=== PATIENT | female | born 1990 | race Caucasian/White ===

== ENCOUNTER 2016-06-02 18:39 | Emergency (ER) | payer MEDICAID ==
[~2016-06-02] VITALS: Ht 157.5 cm; Wt 88.5 kg
[2016-06-02 18:39] VITALS: BP 130/79; PULSE 78; RESP 19; TEMP 98.2; O2SAT 100
[~2016-06-02 18:39] MED LIST: SAPHRIS PO; VIS25 PO
--- NOTE | 2016-06-02 18:39 | NUR ---
BROUGHT BACK TO BED #7 AND TRIAGED. REPORT GIVEN TO KENDRICK
--- NOTE | 2016-06-02 19:00 | NUR ---
REPORT GIVEN TO JHONATAN. WILL ASSUME CARE
--- NOTE | 2016-06-02 19:10 | NUR ---
Pt presents to ED c/o increased SOB and wheeze for the past few days, stated she smoked and is a 13 Weeks old . SKin intact, warm, no accessory muscle use noted. A&Ox4, denies chestpain, denies N/V/D. WIll continue to monitor
[2016-06-02 19:11] LABS: BASOPHILS % (AUTO) 0.3 % (0.0-2.0); EOSINOPHILS # (AUTO) 0.1 K/uL (0.0-0.4); EOSINOPHILS % (AUTO) 1.7 % (0.0-4.0); HEMATOCRIT 34.4 % (36-48); LYMPHOCYTES # (AUTO) 2.3 K/uL (1.0-5.5); LYMPHOCYTES % (AUTO) 28.9 % (20.5-51.5); MEAN CORPUSCULAR HEMOGLOBIN 30 pg (27-31); MEAN CORPUSCULAR HGB CONC 35 % (32-36); MEAN CORPUSCULAR VOLUME 86 fL (79.0-98.0); MONOCYTES # (AUTO) 0.6 K/uL (0.0-1.0); MONOCYTES % (AUTO) 7.7 % (1.7-9.3); NEUTROPHILS # (AUTO) 4.9 K/uL (1.8-7.7); NEUTROPHILS % (AUTO) 61.4 % (40.0-70.0); PLATELET COUNT (AUTO) 207 K/uL (130-430); RED BLOOD CELL COUNT(AUTO) 4.01 MIL/uL (4.2-6.2); RED CELL DISTRIBUTION WIDTH 11.6 % (9.0-15.0); WHITE BLOOD COUNT (AUTO) 7.9 K/uL (4.8-10.8)
[2016-06-02 19:14] LABS: CALCIUM 8.7 mg/dL (8.4-11.0); CREATININE 0.8 mg/dL (0.55-1.30); POTASSIUM 3.7 mmol/L (3.5-5.1)
[2016-06-02 19:17] LABS: INR 0.9 (0.8-1.2); PROTHROMBIN TIME 9.6 SECS (9.5-12.5)
[2016-06-02 19:19] LABS: ALBUMIN 3.2 g/dL (3.4-4.8); TOTAL BILIRUBIN 0.2 mg/dL (0.0-1.0)
[2016-06-02 19:20] LABS: BILIRUBIN,URINE NEGATIVE (NEGATIVE); CLARITY/URINE HAZY (CLEAR); COLOR,URINE YELLOW (YELLOW); GLUCOSE,URINE NEGATIVE (NEGATIVE); KETONES,URINE TRACE (NEGATIVE); LEUKOCYTE ESTERASE ,URINE 1+ (NEGATIVE); NITRITE, URINE NEGATIVE (NEGATIVE); PROTEIN URINE NEGATIVE (NEGATIVE); UROBILINOGEN,URINE 0.2 (0.2-1.0)
[2016-06-02 19:51] LABS: BLOOD, URINE TRACE (NEGATIVE)
--- NOTE | 2016-06-02 20:21 | NUR ---
Yoandy peralta in [facility] - 06/02/16 at 2114 by TIERNEY Pt off unit to [place].
[2016-06-02 20:25] LABS: BACTERIA,URINE MODERATE /HPF (None Seen); MUCUS,URINE 2+ /LPF (None Seen)
--- NOTE | 2016-06-02 21:14 | NUR ---
Dr. Bojorquez at bedside to examine pt and discuss plan of care.
--- NOTE | 2016-06-02 22:10 | NUR ---
Pt needs assessed and care attended . No distress noted
[2016-06-02] MEDS ORDERED: IBUPROFEN 600 MG TABLET PO ONE (22:45)
[2016-06-02] MEDS ORDERED: SULFAMETHOXAZOLE/TRIMETHOPR DS 1 TABLET PO ONE (22:45)
--- NOTE | 2016-06-02 22:48 | NUR ---
Note undone in EDM - 06/02/16 at 2249 by [email or web address] dis Patient given written and verbal discharge instructions and verbalizes understanding. ER MD Bojorquez discussed with patient the results and treatment provided. Patient in stable condition. ID arm band removed. IV catheter removed intact and dressing applied, no active bleeding. Rx of bactrim given. Patient educated on pain management and to follow up with PMD. Pain Scale 0/10 Opportunity for questions provided and answered.
[2016-06-02 22:55] VITALS: BP 124/76; PULSE 77; RESP 19; TEMP 98.2; O2SAT 98
== END 2016-06-02 22:49 | disposition home or self-care (01) ==
LOC: SED 18:39
DX: O23.42 Unspecified infection of urinary tract in pregnancy, second trimester (principal); O26.892 Other specified pregnancy related conditions, second trimester; S29.011A Strain of muscle and tendon of front wall of thorax, initial encounter; I10 Essential (primary) hypertension; J45.909 Unspecified asthma, uncomplicated; Z88.0 Allergy status to penicillin; Z91.018 Allergy to other foods; Z88.8 Allergy status to other drugs, medicaments and biological substances; Z3A.14 14 weeks gestation of pregnancy; X58.XXXA Exposure to other specified factors, initial encounter; Y93.89 Activity, other specified; Y99.8 Other external cause status; Y92.89 Other specified places as the place of occurrence of the external cause; O99.512 Diseases of the respiratory system complicating pregnancy, second trimester; O16.2 Unspecified maternal hypertension, second trimester
CPT/HCPCS: 36415; 71010; 80053; 81000-TC; 81025; 83690-TC; 85025; 85610-TC; 85730-TC; 87086; 99285

== ENCOUNTER 2017-02-15 15:28 | Emergency (ER) | payer MEDICAID ==
[~2017-02-15] VITALS: Ht 157.5 cm; Wt 83.9 kg
[2017-02-15 16:08] VITALS: BP_SYST 116; BP_SYST 136
--- NOTE | 2017-02-15 16:12 | NUR ---
Patient triaged and placed in waiting room. VSS and patient appears in no acute distress at this time. Accompanied by MOTHER, awaiting available bed, and MD notified of need for MSE. Addendum: 02/15/17 at 1612 by JULIUS PT IS WITH FAMILY
--- NOTE | 2017-02-15 16:45 | NUR ---
ER [employer] G[employer]ER Barraza in triage examining patient.
--- NOTE | 2017-02-15 16:50 | NUR ---
Pt presents to ED w/ Family c/o flu symptoms.
[2017-02-15 18:45] VITALS: BP_SYST 136
--- NOTE | 2017-02-15 18:45 | NUR ---
Patient given written and verbal discharge instructions and verbalizes understanding. ER MD discussed with patient the results and treatment provided. Patient in stable condition. ID arm band removed. Rx of Prednisone,zofran,motrin given. Patient educated on pain management and to follow up with PMD. Pain Scale 2 Opportunity for questions provided and answered.
== END 2017-02-15 18:45 | disposition home or self-care (01) ==
LOC: SED 15:28
DX: B34.9 Viral infection, unspecified (principal); J45.909 Unspecified asthma, uncomplicated; I10 Essential (primary) hypertension; Z98.51 Tubal ligation status; Z88.0 Allergy status to penicillin; Z88.8 Allergy status to other drugs, medicaments and biological substances; Z91.018 Allergy to other foods
CPT/HCPCS: 36415; 86710; 99284